=== PATIENT | female | born 1965 | race Caucasian/White ===

== ENCOUNTER 2019-06-24 06:00 | Day surgery (SDC) | payer MEDICAID, OTHER ==
[~2019-06-24] VITALS: Ht 149.9 cm; Wt 55.8 kg
[2019-06-24] MEDS ORDERED: CEFAZOLIN SOD 1 GM in D5W 50 ML IV ONE (07:00)
[2019-06-24] MEDS ORDERED: NS 1000 ML IV.SOLN IV ONE (07:20)
[2019-06-24] MEDS ORDERED: WATER FOR IRRIGATION,STERILE 1,000 ML IRRIG.SOLN IR ONE (07:20)
[2019-06-24] MEDS ORDERED: DILTIAZEM HCL 25 MG/5 ML VIAL IV ONE (07:20)
[2019-06-24] MEDS ORDERED: ROCURONIUM BROMIDE 10 MG/ML (ZEMURON) IV ONE (07:20)
[2019-06-24] MEDS ORDERED: ONDANSETRON HCL 4 MG/2 ML VIAL IVP ONE ×2 (07:20→14:30)
[2019-06-24] MEDS ORDERED: GLYCOPYRROLATE 0.2 MG/ML VIAL IJ ONE (07:20)
[2019-06-24] MEDS ORDERED: KETOROLAC TROMETHAMINE 30 MG VIAL IVP ONE (07:20)
[2019-06-24] MEDS ORDERED: BUPIVACAINE /EPINEPHRINE/PF 0.25% 30 ML VIAL INJ ONE (07:20)
[2019-06-24] MEDS ORDERED: NEOSTIGMINE METHYLSULFATE 1 MG/ML, 10 ML VIAL IVP ONE (07:20)
[2019-06-24] MEDS ORDERED: PROPOFOL 200MG/ 20ML VIAL (DIPRIVAN) IV ONE (07:20)
[2019-06-24] MEDS ORDERED: SEVOFLURANE 15 MIN GAS INH ONE (07:20)
[2019-06-24] MEDS ORDERED: MIDAZOLAM HCL 5 MG/5 ML VIAL IVP ONE (07:20)
[2019-06-24] MEDS ORDERED: fentaNYL CITRATE 250 MCG/5 ML AMP IV ONE (07:20)
[2019-06-24] MEDS ORDERED: IOPAMIDOL 50 ML VIAL IV ONE (07:20)
[2019-06-24] MEDS ORDERED: NS IRRIG SOLN 1000 ML IR ONE (07:20)
[2019-06-24] MEDS ORDERED: DEXAMETHASONE SOD PHOSPHATE 4 MG/ML VIAL IVP ONE (07:20)
[2019-06-24] MEDS ORDERED: IOHEXOL 50 ML IV ONE (07:40)
[2019-06-24] MEDS ORDERED: LR 1,000 ML IV SCH (08:32)
[2019-06-24] MEDS ORDERED: DILTIAZEM HCL 25 MG/5 ML VIAL ONE (08:38)
[2019-06-24] MEDS ORDERED: MEPERIDINE HCL/PF 25 MG/ML DISP.SYRIN IVP PRN (08:45)
[2019-06-24] MEDS ORDERED: HYDROmorphone 1 MG INJ. 1 MG/ML AMPUL IVP PRN ×2 (08:45→09:15)
[2019-06-24] MEDS ORDERED: HYDROmorphone 2 MG/ML VIAL IVP PRN ×2 (08:45)
[2019-06-24] MEDS ORDERED: D5/0.45 NS 1,000 ML IV SCH (09:11)
[2019-06-24] MEDS ORDERED: HYDROcodone/ACETAMIN 5-325 MG TAB (NORCO/ VICODIN) PO PRN ×2 (09:15)
[2019-06-24] MEDS ORDERED: HYDROmorphone 2 MG/ML VIAL ONE (10:12)
[2019-06-24 10:48] VITALS: BP_SYST 156
[2019-06-24] MEDS ORDERED: HYDROcodone/ACETAMIN 5-325 MG TAB (NORCO/ VICODIN) ONE (14:39)
[2019-06-24] MEDS ORDERED: ACETAMINOPHEN/CODEINE 300 MG-30 MG TABLET PO ONE ×2 (14:40→14:45)
[2019-06-24] MEDS ORDERED: ACETAMINOPHEN/CODEINE 300 MG-30 MG TABLET ONE (14:55)
== END 2019-06-24 23:24 | disposition home or self-care (01) ==
LOC: SDS 06:00 → SMU 06:00 → SDS 13:05 → SMU 13:05 → SDS 23:24
PROVIDERS: ATTEND Colon & Rectal Surgery
DX: K80.10 Calculus of gallbladder with chronic cholecystitis without obstruction (principal); K82.8 Other specified diseases of gallbladder; I10 Essential (primary) hypertension; F17.210 Nicotine dependence, cigarettes, uncomplicated; M85.80 Other specified disorders of bone density and structure, unspecified site
CPT/HCPCS: 47563; 88304; C1727; C1758; J0690; J1100; J1170; J1885; J2250; J2405; J2704; J2710; J3010; J3490 ×3; J7030; J7060; Q9967 ×2; 76000